=== PATIENT | female | born 1975 | race Caucasian/White ===

== ENCOUNTER 2018-12-15 17:02 | Emergency (ER) | payer MEDICAID ==
[~2018-12-15] VITALS: Ht 160 cm; Wt 81.6 kg
[2018-12-15 17:02] VITALS: BP 143/78
[~2018-12-15 17:02] MED LIST: ATEN50TA8 PO; FERR325E14 PO; IBUP-2213 PO; PREN-385 PO
--- NOTE | 2018-12-15 17:02 | NUR ---
PT TRIAGED AND SENT TO ER LOBBY AT THIS TIME
--- NOTE | 2018-12-15 18:39 | NUR ---
PT AMBULATED TO BED 1
--- NOTE | 2018-12-15 18:53 | NUR ---
PT BIB SELF C/O BLURRY VISION AND NAUSEA 30 MIN AGO THAT HAS SINCE SUBSIDED. DENIES CP/SOB/FEVERS CHILLS. STATES SHE HASN'T TAKEN HER BP MEDICATION ATENOLOL IN 3 DAY. VSS; PATIENT POSITIONED FOR COMFORT; HOB ELEVATED; BEDRAILS UP X2; BED DOWN. ER MD MADE AWARE OF PT STATUS.
--- NOTE | 2018-12-15 19:09 | NUR ---
GAVE REPORT TO [facility].
--- NOTE | 2018-12-15 19:15 | NUR ---
RECEIVED REPORT FROM AM NURSE. PT LAYING IN BED, DENIES CP, SOB. REPORTS SLIGHT NAUSEA AND HEADACHE. PLACED ON MONITOR. ALL NEEDS MET AT THIS TIME.
--- NOTE | 2018-12-15 19:49 | NUR ---
Dr. Robles evaluating patient at bedside.
[2018-12-15] MEDS ORDERED: KETOROLAC 60 MG/2 ML VIAL IM ONE (19:55)
--- NOTE | 2018-12-15 20:28 | NUR ---
Patient discharged with v/s stable. Written and verbal after care instructions given and explained. Patient alert, oriented and verbalized understanding of instructions. Ambulatory with steady gait. All questions addressed prior to discharge. ID band removed. Patient advised to follow up with PMD. Rx of METOPROLOL, IBUPROFEN, NORCO given. Patient educated on indication of medication including possible reaction and side effects. Opportunity to ask questions provided and answered.
[2018-12-15 20:32] VITALS: BP 144/86
== END 2018-12-15 20:28 | disposition home or self-care (01) ==
LOC: MED 17:02
DX: I10 Essential (primary) hypertension (principal); R51 Headache; Z79.1 Long term (current) use of non-steroidal anti-inflammatories (NSAID); Z79.899 Other long term (current) drug therapy
CPT/HCPCS: 81002; 81025; 96372; 99283; J1885

== ENCOUNTER 2019-09-09 12:12 | Emergency (ER) | payer MEDICAID ==
[~2019-09-09] VITALS: Ht 157.5 cm; Wt 79.4 kg
[2019-09-09 12:21] VITALS: BP 145/85
[2019-09-09] MEDS: methylPREDNISolone SS 125 MG in WATER STERILE 2 ML IM ONE (13:47)
[2019-09-09] MEDS: hydrOXYzine HCL 25 MG TAB PO ONE (13:48)
[2019-09-09] MEDS: diphenhydrAMINE 50 MG/ML VIAL IM ONE (13:48)
[2019-09-09] MEDS: FAMOTIDINE 20 MG TAB PO ONE (14:14)
[2019-09-09 14:16] VITALS: BP 137/75
== END 2019-09-09 14:15 | disposition home or self-care (01) ==
LOC: MED 12:12
DX: L50.9 Urticaria, unspecified (principal); I10 Essential (primary) hypertension; Z79.1 Long term (current) use of non-steroidal anti-inflammatories (NSAID); Z79.899 Other long term (current) drug therapy
CPT/HCPCS: 96372; 99283; J1200; J2930

== ENCOUNTER 2020-05-02 01:05 | Emergency (ER) | payer MEDICAID ==
[~2020-05-02] VITALS: Ht 157.5 cm; Wt 85.3 kg
[2020-05-02 01:12] VITALS: BP 180/99
[2020-05-02 01:32] LABS: APPEARANCE,URINE CLOUDY (CLEAR); BILIRUBIN,URINE NEGATIVE (NEGATIVE); BLOOD, URINE 3+ (NEGATIVE); COLOR,URINE DARK YELLOW (YELLOW); LEUKOCYTE ESTERASE ,URINE NEGATIVE (NEGATIVE); NITRITE, URINE NEGATIVE (NEGATIVE); UGLUCOSE NEGATIVE (NEGATIVE)
[2020-05-02 01:34] LABS: BASOPHILS # (AUTO) 0.1 K/uL (0.00-0.22); BASOPHILS % (AUTO) 0.8 % (0.0-2.0); EOSINOPHILS # (AUTO) 0.6 K/uL (0-0.4); HEMATOCRIT 41.3 % (36-48); HEMOGLOBIN 13.3 g/dL (12.0-16.0); LYMPHOCYTES # (AUTO) 2.9 K/uL (2.5-16.5); LYMPHOCYTES % (AUTO) 24.3 % (20.5-51.1); MEAN CORPUSCULAR HEMOGLOBIN 29 pg (27-31); MEAN CORPUSCULAR HGB CONC 32 g/dL (33-37); MEAN CORPUSCULAR VOLUME 88.7 fL (80-94); MONOCYTES % (AUTO) 8.1 % (1.7-9.3); NEUTROPHILS # (AUTO) 7.5 K/uL (1.8-7.7); NEUTROPHILS % (AUTO) 61.8 % (42.2-75.2); PLATELET COUNT (AUTO) 381 K/uL (140-450); RED BLOOD CELL COUNT(AUTO) 4.66 MIL/uL (4.20-5.40)
--- NOTE | 2020-05-02 01:34 | NUR ---
44 YO F BIB SELF FOR C/C OF VAGINAL BLEEDING AND LOWER ABD CRAMPING AT 8 WEEKS . 6, PARA 5. PT DENIES EVER HAVING A MISCARRAIGE BEFORE. PT STATES SHE HAS FILLED 3 TAMPONS SINCE 1999 ON 04/30. PT DESCRIBES THE BLOOD DARK RED WITH CLOTS. PT STATES SHE TOOK 500MG OF IBUPROFEN AT 04/30. MED HX :HTN NO RX NKA
[2020-05-02 01:44] LABS: ANION GAP 12.3 (8-16); CARBON DIOXIDE 27.2 mmol/L (21-32); CREATININE 0.6 mg/dL (0.6-1.3); POTASSIUM 3.5 mmol/L (3.5-5.1)
--- NOTE | 2020-05-02 01:46 | NUR ---
ULTRASOUND AT BEDSIDE
[2020-05-02 01:57] LABS: RBC,URINE TOO NUMEROUS TO COUN /HPF (0-5); WBC,URINE 0-5 /HPF (0-5)
[2020-05-02 02:35] VITALS: BP 180/99
--- NOTE | 2020-05-02 02:35 | NUR ---
Patient discharged with v/s stable. Written and verbal after care instructions given and explained. Patient verbalized understanding. Ambulatory with steady gait. All questions addressed prior to discharge. Advised to follow up with PMD.
== END 2020-05-02 02:35 | disposition home or self-care (01) ==
LOC: MED 01:05
DX: O20.0 Threatened abortion (principal); I10 Essential (primary) hypertension; Z79.899 Other long term (current) drug therapy
CPT/HCPCS: 36415; 76801; 80048; 81001; 81025; 84702; 85025; 86900; 86901; 99284; Q0092

== ENCOUNTER 2020-08-15 09:07 | Emergency (ER) | payer MEDICAID ==
[~2020-08-15] VITALS: Ht 157.5 cm; Wt 85.3 kg
[2020-08-15 09:15] VITALS: BP 149/80
--- NOTE | 2020-08-15 09:32 | NUR ---
PATIENT PRESENTS TO ED WITH LOWER ABD CRAMPING DURING . PT STATES SHE HAS HAD NO BRIGHT RED BLOOD, CLOTTING OR WHITE DISCHARGE.. DENIES N/V/D; SKIN IS PINK/WARM/DRY; AAOX4 WITH EVEN AND STEADY GAIT; LUNGS CLEAR BL; HR EVEN AND REGULAR; PT DENIES ANY FEVER, CP, SOB, OR COUGH AT THIS TIME; PATIENT STATES PAIN OF 0/10 AT THIS TIME; VSS; PATIENT POSITIONED FOR COMFORT; HOB ELEVATED; BEDRAILS UP X2; BED DOWN. ER MD MADE AWARE OF PT STATUS.
[2020-08-15 09:43] LABS: BASOPHILS # (AUTO) 0.1 K/uL (0.00-0.22); BASOPHILS % (AUTO) 0.8 % (0.0-2.0); EOSINOPHILS # (AUTO) 0.5 K/uL (0-0.4); EOSINOPHILS % (AUTO) 3.5 % (0.0-4.0); HEMATOCRIT 38.5 % (36-48); HEMOGLOBIN 12.8 g/dL (12.0-16.0); LYMPHOCYTES # (AUTO) 2.4 K/uL (2.5-16.5); LYMPHOCYTES % (AUTO) 18.4 % (20.5-51.1); MEAN CORPUSCULAR HEMOGLOBIN 28 pg (27-31); MEAN CORPUSCULAR HGB CONC 33 g/dL (33-37); MEAN CORPUSCULAR VOLUME 84.7 fL (80-94); MONOCYTES # (AUTO) 0.9 K/uL (0.8-1.0); MONOCYTES % (AUTO) 7.1 % (1.7-9.3); NEUTROPHILS # (AUTO) 9.4 K/uL (1.8-7.7); NEUTROPHILS % (AUTO) 70.2 % (42.2-75.2); PLATELET COUNT (AUTO) 375 K/uL (140-450); RED BLOOD CELL COUNT(AUTO) 4.55 MIL/uL (4.20-5.40); RED CELL DISTRIBUTION WIDTH 14.2 % (11.6-13.7); WHITE BLOOD COUNT (AUTO) 13.3 K/uL (4.8-10.8)
[2020-08-15 09:45] LABS: APPEARANCE,URINE CLEAR (CLEAR); BILIRUBIN,URINE NEGATIVE (NEGATIVE); BLOOD, URINE 1+ (NEGATIVE); COLOR,URINE YELLOW (YELLOW); LEUKOCYTE ESTERASE ,URINE NEGATIVE (NEGATIVE); NITRITE, URINE NEGATIVE (NEGATIVE); UGLUCOSE NEGATIVE (NEGATIVE)
--- NOTE | 2020-08-15 09:47 | NUR ---
US AT BEDSIDE
[2020-08-15 10:01] LABS: WBC,URINE 0-5 /HPF (0-5)
[2020-08-15 10:41] VITALS: BP 132/79
== END 2020-08-15 10:42 | disposition home or self-care (01) ==
LOC: MED 09:07
DX: O20.0 Threatened abortion (principal); I10 Essential (primary) hypertension; Z3A.09 9 weeks gestation of pregnancy; Z79.899 Other long term (current) drug therapy
CPT/HCPCS: 36415; 76817; 81001; 81025; 84702; 85025; 99284; Q0092